=== PATIENT | male | born 1960 | race Caucasian/White ===

== ENCOUNTER 2017-02-25 08:06 | Emergency (ER) | payer BC ==
[2017-02-25] MEDS ORDERED: Ondansetron HCl/PF 4 MG/2 ML Vial ONE ×2 (08:36→09:35)
[2017-02-25] MEDS ORDERED: Morphine 4 MG/ML Carpuject ONE (08:36)
[2017-02-25 08:44] LABS: #Basophils 0.1 thou/uL (0.0-0.2); #Eosinphils 0.1 thou/uL (0.0-0.7); #Lymphocytes 1.8 thou/uL (1.20-3.40); #Monocytes 0.9 thou/uL (0.11-0.59); #Neutrophils 5.7 thou/uL (1.40-6.50); %Basophils 1.4 % (0.0-1.0); %Eosinophils 0.9 % (0.0-10.0); %Lymphocytes 20.5 % (21.0-51.0); %Monocytes 10.5 % (0.0-10.0); Mean Platelet Volume 8.8 fL (7.4-10.4); Red Blood Cell (RBC) Count 6.28 mill/uL (4.70-6.10); White Blood Cell (WBC) Count 8.5 thou/uL (4.8-10.8)
[2017-02-25 08:56] LABS: Neutrophil 68 % (42-75); Reactive Lymphocytes 2 % (0-10)
[2017-02-25 08:59] LABS: Troponin I 0.012 ng/mL (< 0.028)
[2017-02-25 09:01] LABS: ALT (SGPT) 25 U/L (8-55); AST (SGOT) 22 U/L (5-34); Alkaline Phosphatase 63 U/L (40-150); Anion Gap 16 mmol/L (10-20); BUN (Urea Nitrogen) 20 mg/dL (8.4-25.7); Bilirubin, Total 0.6 mg/dL (0.2-1.2); Calc. Creatinine Clearance 0 mL/min (70-130); Calcium 9.5 mg/dL (7.8-10.44); Carbon Dioxide 24 mmol/L (22-29); Chloride 105 mmol/L (98-107); Estimated GFR-MDRD 58; Globulin 3.1 g/dL (2.4-3.5); Lipase 31 U/L (8-78); Protein, Total 7.1 g/dL (6.0-8.3)
[2017-02-25 09:21] LABS: Bilirubin Negative (Negative); Blood, Urine Negative (Negative); Glucose, Urine (Dipstick) Negative (Negative); Ketone, Urine Negative (Negative); Nitrite Negative (Negative); Protein, Urine (Dipstick) Negative (Neg-Trace); Urobilinogen 0.2 mg/dL (0.2-1.0)
[2017-02-25] MEDS ORDERED: Lidocaine Viscous Sol 2% 15 ml UD Cup ONE (09:46)
[2017-02-25] MEDS ORDERED: Mag-Al Plus 1200 MG/1200 MG/120 MG/30 ML UDCUP ONE (09:47)
[2017-02-25] MEDS ORDERED: Fentanyl 100 MCG/2 ML VIAL ONE (10:18)
[2017-02-25] MEDS ORDERED: Dicyclomine 20 MG TAB ONE (10:18)
[2017-02-25] MEDS ORDERED: Ketorolac Tromethamine 30 MG/ML VIAL ONE (11:20)
--- NOTE | 2017-02-25 11:21 | CT ---
ABDOMEN AND PELVIC CT SCAN WITH IV CONTRAST: HISTORY: A 56-year-old male with mid epigastric acute-onset abdominal pain. FINDINGS: Mild linear stranding in the lung bases. Status post cholecystectomy. The liver, pancreas, spleen, and adrenal glands are unremarkable. No renal calculus or acute obstruction. Normal-appearing appendix. No bowel obstruction, abscess, adenopathy, or abnormal fluid collection, or other signifi cant acute process in the abdomen or pelvis. There is some fluid and air scattered throughout the c olon without evidence for distention. IMPRESSION: No significant acute process in the abdomen or pelvis. Status post cholecystectomy. No renal calcu tracy or obstruction. POS: [facility]
[2017-02-25] MEDS ORDERED: Haloperidol Lactate 5 MG/ML VIAL ONE (11:34)
[2017-02-25] MEDS ORDERED: diphenhydrAMINE 50 MG/ML VIAL ONE (11:35)
[2017-02-25 12:01] LABS: Troponin I Less than 0.010 ng/mL (< 0.028)
--- NOTE | 2017-04-14 10:40 | EKG ---
Test Reason : CHEST PAIN Blood Pressure : / mmHG Vent. Rate : 059 BPM Atrial Rate : 059 BPM P-R Int : 164 ms QRS Dur : 094 ms QT Int : 430 ms P-R-T Axes : 059 035 039 degrees QTc Int : 425 ms Age and gender specific ECG analysis Sinus bradycardia Possible Left atrial enlargement Borderline ECG Confirmed by CYDNEY Castro, REMEDIOS ([id number]), scientific publications editor GARCIA LOPEZ ([id number] on 04/14/2017 10:40:18 AM Referred By: DR. LAMAS Confirmed By:REMEDIOS LAMAS M.D.
--- NOTE | 2017-04-14 10:40 | EKG ---
Test Reason : CHEST PAIN Blood Pressure : / mmHG Vent. Rate : 064 BPM Atrial Rate : 064 BPM P-R Int : 168 ms QRS Dur : 094 ms QT Int : 418 ms P-R-T Axes : 048 030 036 degrees QTc Int : 431 ms Age and gender specific ECG analysis Normal sinus rhythm with sinus arrhythmia Possible Left atrial enlargement Borderline ECG Confirmed by CYDNEY Castro, REMEDIOS ([id number]), supervising editor trailer GARCIA LOPEZ ([id number]) on 04/14/2017 10:40:19 AM Referred By: DR. LAMAS Confirmed By:REMEDIOS LAMAS M.D.
== END 2017-02-25 12:20 | disposition home or self-care (01) ==
LOC: SCSER 08:06
DX: R10.13 Epigastric pain (principal); R10.12 Left upper quadrant pain; Z79.82 Long term (current) use of aspirin; Z79.899 Other long term (current) drug therapy
CPT/HCPCS: 36415; 74177; 80053; 81003; 82553; 83690; 84484; 85025; 93005; 96361; 96374; 96375; 96376; J1170; J1200; J1630; J1885; J2270; J2405; J3010

== ENCOUNTER 2024-05-01 11:34 | Outpatient (CLI) | payer MEDICARE, BC | END 2024-05-01 11:35 | disposition home or self-care (01) | LOC: SCSRAD 11:34 | PROVIDERS: ATTEND Family Medicine | DX: R05.9 Cough, unspecified (principal) | CPT/HCPCS: 71046 ==